=== PATIENT | female | born 1970 | race Hispanic/Latino ===

== ENCOUNTER 2017-06-27 08:50 | Outpatient (CLI) | payer MEDICARE ==
--- NOTE | 2017-06-27 12:53 | Mammography Report ---
BILATERAL MAMMOGRAM: FINDINGS: There are scattered fibroglandular densities (approximately 25%-50% glandular). No mass, distortion, suspicious calcification, or skin change is seen. No significant change is identified when compared to prior exam in January 2015. CAD was utilized. IMPRESSION: Negative mammogram. There is no mammographic evidence of malignancy. RECOMMENDATION: Follow-up per ACS guidelines. BI-RADS CATEGORY: 1 = Negative ACR BI-RADS MAMMOGRAPHIC CODES: 0 = Needs additional imaging evaluation; 1 = Negative; 2 = Benign; 3 = Probably benign; 4 = Suspicious; 5 = Malignant; 6 = Known biopsy-proven malignancy COMMENT: 1. Dense breast tissue, i.e., adenosis, fibrocystic changes, etc., may obscure an underlying neoplasm. 2. Approximately 10% of cancers are not detected with mammography. 3. A negative mammography report should not delay biopsy if a clinically suspicious mass is present. COMMENT: Patient follow-up letters are generated in [employer].
== END 2017-06-27 08:51 | disposition home or self-care (01) ==
LOC: SPVWC 08:50
PROVIDERS: ATTEND Obstetrics & Gynecology
DX: Z12.31 Encounter for screening mammogram for malignant neoplasm of breast (principal)
CPT/HCPCS: 77067; G0202

== ENCOUNTER 2017-11-08 08:11 | Outpatient (CLI) | payer MEDICARE ==
[2017-11-08 08:57] LABS: Blood Urea Nitrogen 10 mg/dL (7-17)
--- NOTE | 2017-11-08 10:07 | Cat Scan Report ---
CT HEAD WITH AND WITHOUT CONTRAST CT NECK WITH AND WITHOUT CONTRAST INDICATION: Lymphadenopathy. COMPARISON: None similar. FINDINGS: Pre-and post contrast multiplanar head and neck CT performed and somewhat limited due to motion artifact. HEAD: Normal ventricles and sulci without acute or recent infarct, hemorrhage, mass effect or midline shift. No abnormal extra-axial fluid collections. Posterior fossa structures and basilar cisterns within normal limits. No suspicious abnormal enhancement. Rightward nasal septal deviation. Mild right frontal and sphenoid sinus mucosal thickening. Clear remainder imaged paranasal sinuses and mastoid air cells. Intact calvarium. Normal overlying scalp soft tissues. Few radiopaque dental material creating streak artifact incidentally noted. NECK: Normal eye globes, visualized salivary glands and patent airway. Pharynx, hypopharynx and the larynx appear normal. Approximately 2 cm left lower thyroid nodule/mass, axial image 76, series 2. Clear imaged lung apices. Numerous small bilateral neck lymph nodes incidentally noted, predominantly subcentimeter, though largest level IIA lymph nodes noted on the right on axial series 2, images 37-48, measuring approximately 2.9 x 1.5 x 1.9 cm with some intrinsic fat. Multilevel mid to lower cervical facet arthropathy also seen. CONCLUSION: 1. No acute intracranial CT abnormality with mild right-sided sinusitis and rightward nasal septal deviation, as described. 2. Nonspecific right neck lymph node enlargement with multiple other subcentimeter cervical nodes, as described. Please correlate. 3. Various other incidental findings, as above. Thank you for the opportunity to participate in this patient's care.
== END 2017-11-08 08:12 | disposition home or self-care (01) ==
LOC: CT 08:11
PROVIDERS: ATTEND Internal Medicine
DX: J34.2 Deviated nasal septum (principal); J32.9 Chronic sinusitis, unspecified; M12.88 Other specific arthropathies, not elsewhere classified, other specified site; R59.1 Generalized enlarged lymph nodes; R51 Headache
CPT/HCPCS: 36415; 70470; 70492; 82565; 84520; Q9967

== ENCOUNTER 2020-12-02 10:32 | Outpatient (CLI) | payer MEDICARE ==
--- NOTE | 2020-12-02 17:50 | Mammography Report ---
DIGITAL SCREENING MAMMOGRAM WITH CAD, 12/02/2020 CLINICAL INFORMATION / INDICATION: Routine screening mammography. SCREENING MAMMO TECHNIQUE: Digital bilateral 2D mammography was obtained in the craniocaudal and mediolateral obliqu e projections. This examination was interpreted with the benefit of Computer-Aided Detection analysis . COMPARISON: 01/28/2015 through 06/27/2017. FINDINGS: Breast Density: The breasts are almost entirely fatty. No dominant mass, suspicious calcifications, or architectural distortion in either breast. IMPRESSION: No mammographic evidence of malignancy. Follow up recommendation: Routine yearly BI-RADS Category 1: Negative. A "normal" or negative report should not discourage follow up or biopsy of a clinically significant f inding. A written summary of these findings will be mailed to the patient. The patient will be entered into a mammography reporting system which will generate a reminder letter for the patient's next appointmen t at the appropriate interval. The [employer] recommends yearly mammograms starting at age 40 and continuing as l citlaly as a woman is in good health. Breast MRI is recommended for women with an approximate 20-25% or greater lifetime risk of breast cancer, including women with a strong family history of breast or ova kelsey cancer or who have been treated for Hodgkin's disease. Signer Name: Jose J Li MD Signed: 12/02/2020 5:46 PM Workstation Name: [id number]
== END 2020-12-02 10:33 | disposition home or self-care (01) ==
LOC: SPVWC 10:32
PROVIDERS: ATTEND Obstetrics & Gynecology
DX: Z12.31 Encounter for screening mammogram for malignant neoplasm of breast (principal); N64.89 Other specified disorders of breast
CPT/HCPCS: 77067